=== PATIENT | female | born 1975 | race Caucasian/White ===

== ENCOUNTER 2016-12-03 15:46 | Emergency (ER) | payer SELFPAY ==
[~2016-12-03] VITALS: Ht 170.2 cm; Wt 99.8 kg
--- OUTSIDE RECORDS SUMMARY | 2016-12-03 15:52 | XMS REPORT | Continuity of Care Document ---
Author Author [facility] Address Unknown Phone Unavailable Allergies Medications Problems Date Dx Coded Attending Type Code Diagnosis Diagnosed By 07/31/2013 VILLALOBOS DO CHEYENNE K 719.40 PAIN IN JOINT SITE UNSPECIFIED 07/31/2013 VILLALOBOS DO, CHEYENNE K 780.79 OTHER MALAISE AND FATIGUE 07/31/2013 VILLALOBOS DO, CHEYENNE K 787.91 DIARRHEA 07/31/2013 VILLALOBOS DO, CHEYENNE K 719.40 PAIN IN JOINT SITE UNSPECIFIED 07/31/2013 VILLALOBOS DO, CHEYENNE K 780.79 OTHER MALAISE AND FATIGUE 07/31/2013 VILLALOBOS DO, CHEYENNE K 787.91 DIARRHEA 07/31/2013 VILLALOBOS DO, CHEYENNE K 719.40 PAIN IN JOINT SITE UNSPECIFIED 07/31/2013 VILLALOBOS DO, CHEYENNE K 780.79 OTHER MALAISE AND FATIGUE 07/31/2013 VILLALOBOS DO, CHEYENNE K 787.91 DIARRHEA 07/31/2013 VILLALOBOS DO, CHEYENNE K 719.40 PAIN IN JOINT SITE UNSPECIFIED 07/31/2013 VILLALOBOS DO, CHEYENNE K 780.79 OTHER MALAISE AND FATIGUE 07/31/2013 VILLALOBOS DO, CHEYENNE K 787.91 DIARRHEA 07/31/2013 VILLALOBOS DO, CHEY[place]NE K 719.40 PAIN IN JOINT SITE UNSPECIFIED 07/31/2013 VILLALOBOS DO, CHEYENNE K 780.79 OTHER MALAISE AND FATIGUE 07/31/2013 VILLALOBOS DO, CHEYENNE K 787.91 DIARRHEA 07/31/2013 JAHAIRA REGIONAL MANAGER, VICTOR MANUEL D 719.40 PAIN IN JOINT SITE UNSPECIFIED 07/31/2013 JAHAIRA REGIONAL MANAGER, VICTOR MANUEL D 780.79 OTHER MALAISE AND FATIGUE 07/31/2013 JAHAIRA REGIONAL MANAGER, VICTOR MANUEL D 787.91 DIARRHEA 07/31/2013 JAHAIRA REGIONAL MANAGER, VICTOR MANUEL D 719.40 PAIN IN JOINT SITE UNSPECIFIED 07/31/2013 JAHAIRA REGIONAL MANAGER, VICTOR MANUEL D 780.79 OTHER MALAISE AND FATIGUE 07/31/2013 JAHAIRA REGIONAL MANAGER, VICTOR MANUEL D 787.91 DIARRHEA 07/31/2013 JAHAIRA REGIONAL MANAGER, VICTOR MANUEL D 719.40 PAIN IN JOINT SITE UNSPECIFIED 07/31/2013 JAHAIRA REGIONAL MANAGER, VICTOR MANUEL D 780.79 OTHER MALAISE AND FATIGUE 07/31/2013 JAHAIRA REGIONAL MANAGER, VICTOR MANUEL D 787.91 DIARRHEA 07/31/2013 VILLALOBOS DO, CHEYENNE K 719.40 PAIN IN JOINT SITE UNSPECIFIED 07/31/2013 VILLALOBOS DO, CHEYENNE K 780.79 OTHER MALAISE AND FATIGUE 07/31/2013 VILLALOBOS DO, CHEYENNE K 787.91 DIARRHEA 07/31/2013 VILLALOBOS DO, CHEYENNE K 719.40 PAIN IN JOINT SITE UNSPECIFIED 07/31/2013 VILLALOBOS DO, CHEYENNE K 780.79 OTHER MALAISE AND FATIGUE 07/31/2013 VILLALOBOS DO, CHEYENNE K 787.91 DIARRHEA 07/31/2013 VILLALOBOS DO, CHEYENNE K 719.40 PAIN IN JOINT SITE UNSPECIFIED 07/31/2013 VILLALOBOS DO, CHEYENNE K 780.79 OTHER MALAISE AND FATIGUE 07/31/2013 VILLALOBOS DO, CHEYENNE K 787.91 DIARRHEA 07/31/2013 TUAN CRUZ APRN N 719.40 PAIN IN JOINT SITE UNSPECIFIED 07/31/2013 TUAN CRUZ APRN N 780.79 OTHER MALAISE AND FATIGUE 07/31/2013 MANDIE CRUZ APRNCY N 787.91 DIARRHEA 07/31/2013 LINA JEFFERSON APRN 719.40 PAIN IN JOINT SITE UNSPECIFIED 07/31/2013 LINA JEFFERSON APRN 780.79 OTHER MALAISE AND FATIGUE 07/31/2013 LINA JEFFERSON APRN 787.91 DIARRHEA 08/14/2013 VILLALOBOS DO, HCEYENNE K 264.9 UNSPECIFIED VITAMIN A DEFICIENCY 08/14/2013 VILLALOBOS DO, CHEY[place]NE K 264.9 UNSPECIFIED VITAMIN A DEFICIENCY 08/14/2013 VILLALOBOS DO, CHEYENNE K 264.9 UNSPECIFIED VITAMIN A DEFICIENCY 08/14/2013 JAHAIRA REGIONAL MANAGER, VICTOR MANUEL D 264.9 UNSPECIFIED VITAMIN A DEFICIENCY 08/14/2013 JAHAIRA REGIONAL MANAGER, VICTOR MANUEL D 264.9 UNSPECIFIED VITAMIN A DEFICIENCY 08/14/2013 JAHAIRA REGIONAL MANAGER, VICTOR MANUEL D 264.9 UNSPECIFIED VITAMIN A DEFICIENCY 08/14/2013 VILLALOBOS DO, CHEY[place]NE K 264.9 UNSPECIFIED VITAMIN A DEFICIENCY 08/14/2013 VILLALOBOS DO, CHEY[place]NE K 264.9 UNSPECIFIED VITAMIN A DEFICIENCY 08/14/2013 VILLALOBOS DO, CHEY[place]NE K 264.9 UNSPECIFIED VITAMIN A DEFICIENCY 08/14/2013 TUAN CRUZ APRN N 264.9 UNSPECIFIED VITAMIN A DEFICIENCY 08/14/2013 LINA JEFFERSON APRN 264.9 UNSPECIFIED VITAMIN A DEFICIENCY 08/24/2013 VILLALOBOS DO, CHEYENNE K NODX NO DIAGNOSIS 08/24/2013 VILLALOBOS DO, CHEYENNE K NODX NO DIAGNOSIS 08/24/2013 TUAN CRUZ APRN NODX NO DIAGNOSIS 08/24/2013 LINA JEFFERSON APRN NODX NO DIAGNOSIS 09/24/2013 JAHAIRA ROMANPC, VICTOR MANUEL D 296.33 MO DEPRESSIVE RECURRENT SEVERE W/O PSYCHOTIC BEHAVIOR 09/24/2013 JAHAIRA CAROLINA, VICTOR MANUEL D 296.33 MO DEPRESSIVE RECURRENT SEVERE W/O PSYCHOTIC BEHAVIOR 09/24/2013 JAHAIRA CAROLINA, VICTOR MANUEL D 296.33 MO DEPRESSIVE RECURRENT SEVERE W/O PSYCHOTIC BEHAVIOR 09/24/2013 VILLALOBOS DO, CHEY[place]NE K 296.33 MO DEPRESSIVE RECURRENT SEVERE W/O PSYCHOTIC BEHAVIOR 09/24/2013 VILLALOBOS DO, [place]NE K 296.33 MO DEPRESSIVE RECURRENT SEVERE W/O PSYCHOTIC BEHAVIOR 09/24/2013 VILLALOBOS DO, CHEY[place]NE K 296.33 MO DEPRESSIVE RECURRENT SEVERE W/O PSYCHOTIC BEHAVIOR 09/24/2013 TUAN CRUZ APRN N 296.33 MO DEPRESSIVE RECURRENT SEVERE W /O PSYCHOTIC BEHAVIOR 09/24/2013 LINA JEFFERSON APRN 296.33 MO DEPRESSIVE RECURRENT SEVERE W/O PSYCHOTIC BEHAVIOR 10/05/2013 JAHAIRA ROMANPC, VICTOR MANUEL D 268.9 UNSPECIFIED VITAMIN D DEFICIENCY 10/05/2013 JAHAIRA ROMANPC, VICTOR MANUEL D 268.9 UNSPECIFIED VITAMIN D DEFICIENCY 10/05/2013 VILLALOBOS DO, CHEY[place]NE K 268.9 UNSPECIFIED VITAMIN D DEFICIENCY 10/05/2013 VILLALOBOS DO, CHEY[place]NE K 268.9 UNSPECIFIED VITAMIN D DEFICIENCY 10/05/2013 VILLALOBOS DO, CHEYENNE K 268.9 UNSPECIFIED VITAMIN D DEFICIENCY 10/05/2013 TUAN CRUZ APRN N 268.9 UNSPECIFIED VITAMIN D DEFICIENCY 10/05/2013 LINA JEFFERSON APRN 268.9 UNSPECIFIED VITAMIN D DEFICIENCY 10/19/2013 VILLALOBOS DO CHEY[place]NE K 729.1 MYALGIA AND MYOSITIS UNSPECIFIED 10/19/2013 VILLALOBOS , [place]NE K 780.60 FEVER, UNSPECIFIED 10/19/2013 VILLALOBOS DO, CHEY[place]NE K 729.1 MYALGIA AND MYOSITIS UNSPECIFIED 10/19/2013 VILLALOBOS DO, CHEY[place]NE K 780.60 FEVER, UNSPECIFIED 10/19/2013 VILLALOBOS DO, CHEY[place]NE K 729.1 MYALGIA AND MYOSITIS UNSPECIFIED 10/19/2013 VILLALOBOS DO, CHEY[place]NE K 780.60 FEVER, UNSPECIFIED 10/19/2013 UTAN CRUZ APRN N 729.1 MYALGIA AND MYOSITIS UNSPECIFIED 10/19/2013 TUAN CRUZ APRN N 780.60 FEVER, UNSPECIFIED 10/19/2013 LINA JEFFERSON APRN 729.1 MYALGIA AND MYOSITIS UNSPECIFIED 10/19/2013 LINA JEFFERSON APRN 780.60 FEVER, UNSPECIFIED 02/08/2014 VILLALOBOS LUX JHAVERIA K 719.41 PAIN IN JOINT INVOLVING SHOULDER REGION 02/08/2014 TUAN CRUZ APRN 719.41 PAIN IN JOINT INVOLVING SHOULDER REGION 02/08/2014 LINA JEFFERSON APRN 719.41 PAIN IN JOINT INVOLVING SHOULDER REGION 01/24/2015 LINA JEFFERSON APRN 278.00 OBESITY UNSPECIFIED 05/30/2015 MAGNUS POSADA GLOVE PRESSER Ot 719.41 05/31/2015 MAGNUS POSADA GLOVE PRESSER Ot 719.41 06/02/2015 MAGNUS POSADA GLOVE PRESSER Ot 719.41 06/09/2015 LINA JEFFERSON APRN Ot 786.52 06/09/2015 LINA JEFFERSON APRN Ot 840.7 06/09/2015 LINA JEFFERSON APRN Ot 847.0 06/09/2015 LINA JEFFERSON APRN Ot E000.8 06/09/2015 LINA JEFFERSON APRN Ot E928.9 06/09/2015 LINA JEFFERSON APRN Ot V57.1 06/09/2015 LINA JEFFERSON VENUE ATTENDANT Ot 786.52 06/09/2015 LINA JEFFERSON VENUE ATTENDANT Ot 840.7 06/09/2015 LINA JEFFERSON VENUE ATTENDANT Ot 847.0 06/09/2015 LINA JEFFERSON VENUE ATTENDANT Ot E000.8 06/09/2015 LINA JEFFERSON VENUE ATTENDANT Ot E928.9 06/09/2015 LINA JEFFERSON VENUE ATTENDANT Ot V57.1 06/17/2015 MAGNUS POSADA Ot 719.41 06/17/2015 LINA JEFFERSON VENUE ATTENDANT Ot 786.52 06/17/2015 LINA JEFFERSON VENUE ATTENDANT Ot 840.7 06/17/2015 LINA JEFFERSON APRN Ot 847.0 06/17/2015 LINA JEFFERSON APRN Ot E000.8 06/17/2015 LINA JEFFERSON APRN Ot E928.9 06/17/2015 LNIA JEFFERSON APRN Ot V57.1 06/17/2015 LINA JEFFERSON VENUE ATTENDANT Ot 789.32 06/17/2015 LINA JEFFERSON VENUE ATTENDANT Ot 786.52 06/17/2015 LINA JEFFERSON VENUE ATTENDANT Ot 840.7 06/17/2015 LINA JEFFERSON VENUE ATTENDANT Ot 847.0 06/17/2015 LINA JEFFERSON VENUE ATTENDANT Ot E000.8 06/17/2015 LINA JEFFERSON VENUE ATTENDANT Ot E928.9 06/17/2015 LINA JEFFERSON VENUE ATTENDANT Ot V57.1 06/30/2015 LINA JEFFERSON VENUE ATTENDANT Ot 786.52 PAINFUL RESPIRATION 06/30/2015 LINA JEFFERSON VENUE ATTENDANT Ot 840.7 (SLAP) SUPERIOR GLENOID LABRUM LESIONS 06/30/2015 LINA JEFFERSON VENUE ATTENDANT Ot 847.0 SPRAIN OF NECK 06/30/2015 LINA JEFFERSON VENUE ATTENDANT Ot E000.8 OTHER EXTERNAL CAUSE STATUS 06/30/2015 LINA JEFFERSON VENUE ATTENDANT Ot E928.9 ACCIDENT NOS 06/30/2015 LINA JEFFERSON VENUE ATTENDANT Ot S43.439A SUPERIOR GLENOID LABRUM LESION OF UNSP S 06/30/2015 LINA JEFFERSON VENUE ATTENDANT Ot V57.1 PHYSICAL THERAPY NEC 06/30/2015 LINA JEFFERSON VENUE ATTENDANT Ot X58.XXXA EXPOSURE TO OTHER SPECIFIED FACTORS , INI 06/30/2015 LINA JEFFERSON VENUE ATTENDANT Ot Y99.8 OTHER EXTERNAL CAUSE STATUS 06/30/2015 LINA JEFFERSON VENUE ATTENDANT Ot Z51.89 ENCOUNTER FOR OTHER SPECIFIED AFTERCARE 09/13/2015 MAGNUS POSADA GLOVE PRESSER Ot 719.41 09/13/2015 LINA JEFFERSON VENUE ATTENDANT Ot 789.32 08/15/2016 MAGNUS POSADA GLOVE PRESSER Ot 719.41 JOINT PAIN-SHLDER 08/15/2016 LINA JEFFERSON VENUE ATTENDANT Ot 789.32 ABDOMINAL/PELVIC SWELLING,MASS/LUMP, LFT 08/15/2016 LINA JEFFERSON VENUE ATTENDANT Ot M79.2 NEURALGIA AND NEURITIS, UNSPECIFIED 08/15/2016 LINA JEFFERSON VENUE ATTENDANT Ot R29.2 ABNORMAL REFLEX 08/15/2016 LINA JEFFERSON VENUE ATTENDANT Ot R51 HEADACHE 08/15/2016 LINA JEFFERSON VENUE ATTENDANT Ot 789.32 ABDOMINAL/PELVIC SWELLING,MASS/LUMP, LFT 08/15/2016 MAGNUS POSADA GLOVE PRESSER Ot 719.41 JOINT PAIN-SHLDER 08/16/2016 MAGNUS POSADA GLOVE PRESSER Ot 719.41 JOINT PAIN-SHLDER 09/14/2016 MAGNUS POSADA GLOVE PRESSER Ot 719.41 JOINT PAIN-SHLDER 09/14/2016 LINA JEFFERSON VENUE ATTENDANT Ot 789.32 ABDOMINAL/PELVIC SWELLING,MASS/LUMP, LFT 09/14/2016 LINA JEFFERSON VENUE ATTENDANT Ot M79.2 NEURALGIA AND NEURITIS, UNSPECIFIED 09/14/2016 LINA JEFFERSON VENUE ATTENDANT Ot R29.2 ABNORMAL REFLEX 09/14/2016 LINA JEFFERSON VENUE ATTENDANT Ot R51 HEADACHE 09/14/2016 MAGNUS POSADA GLOVE PRESSER Ot 719.41 JOINT PAIN-SHLDER 09/14/2016 LINA JEFFERSON VENUE ATTENDANT Ot 789.32 ABDOMINAL/PELVIC SWELLING,MASS/LUMP, LFT 09/14/2016 LINA JEFFERSON VENUE ATTENDANT Ot M79.2 NEURALGIA AND NEURITIS, UNSPECIFIED 09/14/2016 LINA JEFFERSON VENUE ATTENDANT Ot R29.2 ABNORMAL REFLEX 09/14/2016 LINA JEFFERSON VENUE ATTENDANT Ot R51 HEADACHE 09/14/2016 LINA JEFFERSON VENUE ATTENDANT Ot 789.32 ABDOMINAL/PELVIC SWELLING,MASS/LUMP, LFT 09/14/2016 MAGNUS POSADA GLOVE PRESSER Ot 719.41 JOINT PAIN-SHLDER 09/15/2016 MAGNUS POSADA GLOVE PRESSER Ot 719.41 JOINT PAIN-[facility] Procedures Code Description [place] [address] H PYLORI (IN-HOUSE) 07/31/2013 80328 ROUTINE VENIPUNCTURE 07/31/2013 14931 CMP 07/31/2013 52340 VITAMIN D 25-HYDROXY (D2,D3, TOTAL) 07/31/2013 74331 TSH 07/31/2013 18544 CBC 07/31/2013 91280 RA FACTOR 2012 27312 XRAY ABDOMEN 2 VIEWS 08/10/2013 GENERAL S LUTHER NAVAS 08/14/2013 93702 HEMOCCULT 2012 49245 CULTURE STOOL 08/2013 97012 STOOL FOR O & P 08/17/2013 91295 STOOL FOR POLYS & LEUKOCYTES 08/17/2013 77570 PSYCH DIAGNOSTIC EVALUATION 09/25/2013 07670 PSYTX PT&/FAMILY 45 MINUTES 10/05/2013 02547 PSYTX PT&/FAMILY 45 MINUTES 10/19/2013 11702 INFLUENZA A & B (IN-HOUSE) 10/19/2013 ORTHOPEDI LUANNE VELÁZQUEZ 02/08/2014 22822 XRAY SHOULDER LEFT COMP 2 VIEWS 01/12/2015 08749 MRI EXTREMITY JOINT, UPPER LEFT, W/O CONTRAST 01/12/2015 ORTHOPEDI FLORECITA BILLINGS 01/12/2015 09342 JOINT INJECTION- LARGE JOINT (SPECIFY MEDCIN DESCRIPTION) 01/25/2015 J1030 DEPO MEDROL 40 MG INJ 01/25/2015 J2001 LIDOCAINE INJECTION 01/25/2015 J3490 BUPIVACAINE/MARCAINE HCL 1 EACH 01/25/2015 Results Encounters ACCT No. Visit Date/Time Discharge Status Pt. Type Provider Facility Loc./Unit Complaint [id number] 01/24/2015 15:40:00 01/24/2015 23: 59:59 CLS Outpatient LINA JEFFERSON APRN [id number] 01/12/2015 09:25:00 01/12/2015 23: 59:59 CLS Outpatient TUAN CRUZ APRN [id number] 02/08/2014 09:32:00 02/08/2014 23: 59:59 CLS Outpatient CHEYENNE VILLALOBOS DO [id number] 12/08/2013 09:56:00 12/08/2013 23: 59:59 CLS Outpatient CHEYENNE VILLALOBOS DO [id number] 10/19/2013 10:54:00 10/19/2013 23: 59:59 CLS Outpatient CHEYENNE VILLALOBOS DO [id number] 10/16/2013 13:49:00 10/16/2013 23: 59:59 CLS Outpatient VICTOR MANUEL CAMPO LCPC [id number] 10/05/2013 10:07:00 10/05/2013 23: 59:59 CLS Outpatient VICTOR MANUEL CAMPO LCPC [id number] 09/24/2013 12:22:00 09/24/2013 23: 59:59 CLS Outpatient VICTOR MANUEL CAMPO LCPC [id number] 08/24/2013 13:44:00 08/24/2013 23: 59:59 CLS Outpatient CHEYENNE VILLALOBOS DO [id number] 08/17/2013 10:46:00 08/17/2013 23: 59:59 CLS Outpatient CHEYENNE VILLALOBOS DO [id number] 08/14/2013 08:57:00 08/14/2013 23: 59:59 CLS Outpatient CHEYENNE VILLALOBOS DO [id number] 08/10/2013 11:43:00 08/10/2013 23: 59:59 CLS Outpatient CHEYENNE VILLALOBOS DO [id number] 07/31/2013 09:49:00 07/31/2013 23: 59:59 CLS Outpatient CHEYENNE VILLALOBOS DO
--- NOTE | 2016-12-03 16:22 | ED Hip Pain/Injury ---
General Chief Complaint: Hip/Pelvic Problems Stated Complaint: L HIP PAIN Source: patient Exam Limitations: no limitations History of Present Illness Time seen by provider: 16:21 Initial Comments To ER with severe left hip pain since last night. This started spontaneously last night she had difficulty sleeping due to the pain. The pain is in the anterior lateral and posterior left hip. There is no injury that she can recall. No fevers or chills. No low back pain. No dysuria. No loss of bowel or bladder control and no saddle anesthesia. Pain occasionally radiates down the left leg terminating at the knee. Pain is worse with weightbearing Timing/Duration: just prior to arrival Severity: moderate Location: hip (L) Associated Symptoms: trouble walking Allergies and Home Medications Allergies Coded Allergies: No Known Drug Allergies (Unverified , 12/03/16) Constitutional: see HPI EENTM: see HPI Respiratory: no symptoms reported Cardiovascular: no symptoms reported Genitourinary: no symptoms reported Musculoskeletal: see HPI back pain joint pain Skin: no symptoms reported Psychiatric/Neurological: No Symptoms Reported Past [place]-Enxsvs-Qkdnhf Hx Patient Social History Recent Foreign Travel: No Contact w/Someone Who Travel: No Physical Exam Vital Signs Vital Sign - Last 12Hours 12/03/16 16:14 Temp 98.6 Pulse 71 Resp 22 B/P 150/86 Pulse Ox 98 O2 Delivery Room Air Capillary Refill : General Appearance: No Apparent Distress WD/WN HEENT: PERRL/EOMI TMs Normal Neck: Full Range of Motion Normal Inspection Cardiovascular: Regular Rate, Rhythm Normal Peripheral Pulses Respiratory: Normal Breath Sounds No Accessory Muscle Use No Respiratory Distress Gastrointestinal: Normal Bowel Sounds Non Tender Soft Extremity: Normal Capillary RefillNo Swelling, Other (pain with ROM to left hip. She states her most pain is in the lateral hip. ) Neurologic/Psychiatric: Alert Oriented x3 No Motor/Sensory Deficits Skin: Normal Color Warm/Dry Progress/Results/Core Measures Results/Orders Lab Results Laboratory Tests Test 12/03/16 16:19 12/03/16 17:22 Range/Units Anion Gap 12 5-14 MMOL/L BUN/Creatinine Ratio 6 Basophils # (Auto) 0.1 0.0-0.1 10^3/uL Basophils (%) (Auto) 1 0-10 % Blood Urea Nitrogen 6 L 7-18 MG/DL C-Reactive Protein High Sensitivity 1.15 H 0.00-0.50 MG/DL Calcium Level 9.1 8.5-10.1 MG/DL Carbon Dioxide Level 19 L 21-32 MMOL/L Chloride Level 109 H 98-107 MMOL/L Creatinine 0.93 0.60-1.30 MG/DL Eosinophils # (Auto) 0.1 0.0-0.3 10^3/uL Eosinophils (%) (Auto) 1 0-10 % Erythrocyte Sedimentation Rate 27 H 0-20 MM/HR Estimat Glomerular Filtration Rate > 60 Glucose Level 100 70-105 MG/DL Hematocrit 38 35-52 % Hemoglobin 12.7 11.5-16.0 G/DL Lymphocytes # (Auto) 2.9 1.0-4.0 X 10^3 Lymphocytes (%) (Auto) 30 12-44 % Mean Corpuscular Hemoglobin 27 25-34 PG Mean Corpuscular Hemoglobin Concent 34 32-36 G/DL Mean Corpuscular Volume 81 80-99 FL Mean Platelet Volume 11.2 H 7.4-10.4 FL Monocytes # (Auto) 1.1 H 0.0-1.0 X 10^3 Monocytes (%) (Auto) 11 0-12 % Neutrophils # (Auto) 5.3 1.8-7.8 X 10^3 Neutrophils (%) (Auto) 56 42-75 % Platelet Count 354 130-400 10^3/uL Potassium Level 4.2 3.6-5.0 MMOL/L Red Blood Count 4.71 4.35-5.85 10^6/uL Red Cell Distribution Width 14.8 H 10.0-14.5 % Sodium Level 140 135-145 MMOL/L White Blood Count 9.5 4.3-11.0 10^3/uL Urine Bacteria NEGATIVE /HPF Urine Bilirubin NEGATIVE NEGATIVE Urine Casts NONE /LPF Urine Clarity SLIGHTLY CLOUDY Urine Color YELLOW Urine Crystals NONE /LPF Urine Culture Indicated NO Urine Glucose (UA) NEGATIVE NEGATIVE Urine Ketones NEGATIVE NEGATIVE Urine Leukocyte Esterase 1+ H NEGATIVE Urine Mucus NEGATIVE /LPF Urine Nitrite NEGATIVE NEGATIVE Urine Protein NEGATIVE NEGATIVE Urine RBC NONE /HPF Urine RBC (Auto) NEGATIVE NEGATIVE Urine Specific [place] 1.015 L 1.016-1.022 Urine Squamous Epithelial Cells 25-50 H /HPF Urine Urobilinogen NORMAL NORMAL MG/DL Urine WBC 0-2 /HPF Urine pH 6.5 5-9 My Orders Orders-KEEGAN RESTREPO APRN Cbc With Automated Diff (12/03/16 16:20) Basic Metabolic Panel (12/03/16 16:20) Hs C Reactive Protein (12/03/16 16:20) Erythrocyte Sedimentation Rate (12/03/16 16:20) Saline Lock/Iv-Start (12/03/16 16:20) Ketorolac Injection (Toradol Injection) (12/03/16 16:30) Orphenadrine Injection (Norflex Injectio (12/03/16 16:30) Hip, Left, 2 Views (12/03/16 16:38) Ua Culture If Indicated (12/03/16 16:39) Urine Bedside (12/03/16 16:39) Fentanyl Injection (Sublimaze Injection (12/03/16 17:30) Mri Lt Lower Ext Joint W/O (12/03/16 17:20) Medications Given in ED Current Medications Medications Dose Ordered Sig/Shane Route Start Time Stop Time Status Last Admin Dose Admin Fentanyl Citrate 75 mcg ONCE ONCE IVP 12/03/16 17:30 12/03/16 17:31 DC 12/03/16 17:54 75 MCG Ketorolac Tromethamine 30 mg ONCE ONCE IVP 12/03/16 16:30 12/03/16 16:31 DC 12/03/16 16:30 30 MG Orphenadrine Citrate 60 mg ONCE ONCE IV 12/03/16 16:30 12/03/16 16:31 DC 12/03/16 16:30 60 MG Vital Signs/I&O Vital Sign - Last 12Hours 12/03/16 16:14 Temp 98.6 Pulse 71 Resp 22 B/P 150/86 Pulse Ox 98 O2 Delivery Room Air Diagnostic Imaging Diagonstic Imaging: Xray Comments NAME: [facility] REC#: [id number] PT STATUS: REG ER : 1975 PHYSICIAN: KEEGAN RESTREPO APRN ADMIT DATE: 12/03/16/ER Draft Date of Exam:12/03/16 HIP, LEFT, 2 VIEWS INDICATION: A 41-year-old female with left hip pain. COMPARISON: None. FINDINGS: Two views of the left hip show no evidence of new or healing fractures, bony destruction, or remodeling. The left femoral head appears well seated within the left acetabulum. IMPRESSION: No fracture or subluxation seen. Dictated on workstation # [id number] Dict: 12/03/16 1713 Trans: 12/03/16 [id number] Interpreted by: SAVANNAH CHEN MD Electronically signed by: Departure Impression Impression: Primary Impression: nonspecific left hip pain Disposition: HOME, SELF-CARE Condition: Stable Departure-Patient Inst. Decision time for Depature: 19:35 Referrals: KIANA RUSHING MD, JONATHAN MD IPSEN,CARLOS GERMAIN,CINTHYA Cavazos MD [facility] (PCP) Primary Care Physician KAYLEE DELGADO,RACHEAL Garcia MD Patient Instructions: Hip Pain Add. Discharge Instructions: 1. Call one of the orthopedic surgeons for follow-up 2. Return to ER for any concerns 3. Medication as directed All discharge instructions reviewed with patient and/or family. Voiced understanding. Scripts Hydrocodone/Acetaminophen (Blair 5-325 Tablet)1 Each Tablet1 Each PO BID #10 TAB Prov:KEEGAN RESTREPO APRN 12/03/16 Naproxen (Naprosyn)500 Mg [id number] Mg PO BID PRN PAIN #30 TAB Prov:KEEGAN RESTREPO APRN 12/03/16 KEEGAN RESTREPO APRN Dec 03, 2016 16:22
[2016-12-03] MEDS ORDERED: ORPHENADRINE 60 MG/2 ML (NORFLEX) AMP IV ONE (16:30)
[2016-12-03] MEDS ORDERED: KETOROLAC 30 MG/ML VIAL IVP ONE (16:30)
[2016-12-03 16:34] LABS: BASOPHILS # (AUTO) 0.1 10^3/uL (0.0-0.1); BASOPHILS % (AUTO) 1 % (0-10); EOSINOPHILS # (AUTO) 0.1 10^3/uL (0.0-0.3); EOSINOPHILS % (AUTO) 1 % (0-10); LYMPHOCYTES # (AUTO) 2.9 X 10^3 (1.0-4.0); LYMPHOCYTES % (AUTO) 30 % (12-44); MEAN CORPUSCULAR HEMOGLOBIN 27 PG (25-34); MEAN CORPUSCULAR HGB CONC 34 G/DL (32-36); MEAN CORPUSCULAR VOLUME 81 FL (80-99); MEAN PLATELET VOLUME 11.2 FL (7.4-10.4); MONOCYTES # (AUTO) 1.1 X 10^3 (0.0-1.0); MONOCYTES % (AUTO) 11 % (0-12); NEUTROPHILS # (AUTO) 5.3 X 10^3 (1.8-7.8); NEUTROPHILS % (AUTO) 56 % (42-75); PLATELET COUNT 354 10^3/uL (130-400); RED BLOOD COUNT 4.71 10^6/uL (4.35-5.85); RED CELL DISTRIBUTION WIDTH 14.8 % (10.0-14.5); WHITE BLOOD COUNT 9.5 10^3/uL (4.3-11.0)
[2016-12-03 16:48] LABS: ANION GAP 12 MMOL/L (5-14); BLOOD UREA NITROGEN 6 MG/DL (7-18); BUN/CREATININE RATIO 6; CALCIUM 9.1 MG/DL (8.5-10.1); CARBON DIOXIDE 19 MMOL/L (21-32); CHLORIDE 109 MMOL/L (98-107); CREATININE SERUM 0.93 MG/DL (0.60-1.30); GFR ESTIMATED > 60; GLUCOSE 100 MG/DL (70-105); SODIUM 140 MMOL/L (135-145); hs C REACTIVE PROTEIN 1.15 MG/DL (0.00-0.50)
[2016-12-03 16:50] LABS: POTASSIUM 4.2 MMOL/L (3.6-5.0)
--- NOTE | 2016-12-03 17:16 | Diagnostic Imaging Report ---
INDICATION: A 41-year-old female with left hip pain. COMPARISON: None. FINDINGS: Two views of the left hip show no evidence of new or healing fractures, bony destruction, or remodeling. The left femoral head appears well seated within the left acetabulum. IMPRESSION: No fracture or subluxation seen. Dictated by: Dictated on workstation # [id number]
[2016-12-03 17:20] LABS: ERYTHROCYTE SEDIMENTATION RATE 27 MM/HR (0-20)
[2016-12-03] MEDS ORDERED: fentaNYL INJECTION 100 MCG/2 ML AMP IVP ONE (17:30)
[2016-12-03 17:37] LABS: BILIRUBIN,URINE NEGATIVE (NEGATIVE); KETONES,URINE NEGATIVE (NEGATIVE); LEUKOCYTE ESTERASE ,URINE 1+ (NEGATIVE); NITRITE,URINE NEGATIVE (NEGATIVE); PH,URINE 6.5 (5-9); PROTEIN,URINE NEGATIVE (NEGATIVE); UROBILINOGEN,URINE NORMAL (NORMAL)
[2016-12-03 17:49] LABS: SQUAMOUS EPITHELIAL CELL,UR 25-50 /HPF; WBC,URINE 0-2 /HPF
[2016-12-03] MEDS ORDERED: NAPR500T PO (19:36)
[2016-12-03] MEDS ORDERED: HYDR-757 PO (19:36)
--- NOTE | 2016-12-03 19:37 | Diagnostic Imaging Report ---
PROCEDURE: MRI left joint lower extremity without contrast. TECHNIQUE: Multiplanar, multisequence non contrast-enhanced MRI of the left lower extremity was accomplished. INDICATION: Severe pain to the left hip since last night. No known injury to the hip. The patient did get hit in this [place] with a softball one month ago and it keeps re-bruising; and the patient has noticed bruising appearing for no reason. COMPARISON STUDIES: Plain films of the left hip from today. FINDINGS: There is no fracture or dislocation present. There is no joint effusion. Normal ossification is present. The labrum appears normal. The soft tissue portions of the pelvis appear unremarkable. The sacroiliac joints and visualized portions of the lumbar spine are normal. IMPRESSION: Normal MRI of the left hip. Dictated by: Dictated on workstation # [id number]
[2016-12-03 19:44] VITALS: BP 150/86
== END 2016-12-03 19:43 | disposition home or self-care (01) ==
LOC: EDUNIT# 15:46 → ER 15:48
DX: M25.552 Pain in left hip (principal)
CPT/HCPCS: 36415; 73502; 73721; 80048; 81000; 84703; 85025; 85652; 86141; 96374; 96375

== ENCOUNTER 2019-12-28 10:21 | Outpatient (RCR) | payer BC ==
[~2019-12-28 10:21] MED LIST: HYDR-4226 PO; NAPR-1071 PO
== END 2020-02-10 | disposition home or self-care (01) ==
PROVIDERS: ATTEND Orthopaedic Surgery
DX: S43.431D Superior glenoid labrum lesion of right shoulder, subsequent encounter (principal); X58.XXXD Exposure to other specified factors, subsequent encounter; Z98.890 Other specified postprocedural states

== ENCOUNTER → 2020-04-27 | Outpatient (CLI) | payer OTHER ==
[~2020-04-27] VITALS: Ht 170.2 cm; Wt 113.6 kg
[~2020-04-27] MED LIST changes: +GADOBUTROL 7.5 MMOL/7.5 ML (GADAVIST) VIAL IV ONE; +IOHEXOL 240 MGI/ML 50 ML (OMNIPAQUE) VIAL IV ONE
--- NOTE | 2020-04-27 15:49 | Diagnostic Imaging Report ---
PROCEDURE: MRI upper extremity any joint with contrast right. TECHNIQUE: Multiplanar, multisequence intra-articular contrast-enhanced MRI of the right shoulder was accomplished. INDICATION: History of right shoulder surgery with re-injury while throwing. Right shoulder pain. COMPARISON: None. FINDINGS: The patient was unable to complete the ABER view on the exam. Multiple images demonstrate motion artifact. No acute fracture or dislocation is seen in the right shoulder. Alignment appears normal. The joint is well distended with contrast. There is contrast in the subacromial/subdeltoid bursa as well as in the anterior soft tissues, likely from backflow from injection. No high-grade partial-thickness or full-thickness tears are seen in the rotator cuff. No focal muscular atrophy is seen. The long head of the biceps tendon is not well seen, and appears to be torn and retracted distally. The glenoid labrum demonstrates complex, possibly degenerative tearing superiorly. No para-labral cyst is seen. The acromion has a curved undersurface. The coracoclavicular and coracoacromial ligaments are intact. The soft tissues about the right shoulder are otherwise unremarkable. IMPRESSION: 1. Retracted tear of the right long head of the biceps tendon. 2. Complex, possibly degenerative tearing of the superior glenoid labrum. 3. No high-grade partial-thickness or full-thickness rotator cuff tear is seen. Dictated by: Dictated on workstation # [id number]
== END ==
LOC: RAD 12:21
PROVIDERS: ATTEND Orthopaedic Surgery
DX: S46.111A Strain of muscle, fascia and tendon of long head of biceps, right arm, initial encounter (principal); X58.XXXA Exposure to other specified factors, initial encounter
CPT/HCPCS: 23350; 73040; 73222